=== PATIENT | male | born 1980 | race Caucasian/White ===

== ENCOUNTER 2020-09-29 23:40 | Emergency (ER) | payer BC ==
[2020-09-30] MEDS ORDERED: Bacitracin Oint 1 GM U/D Packet TOP ONE (00:41)
--- NOTE | 2020-09-30 00:54 | EDM.PDOC ---
ED HPI GENERAL MEDICAL PROBLEM - General Chief Complaint: Laceration Stated Complaint: RIGHT LEG CUT Time Seen by Provider: 09/30/20 00:30 Source of Information: Reports: Patient History Limitations: Reports: No Limitations - History of Present Illness INITIAL COMMENTS - FREE TEXT/NARRATIVE: Patient states he was cleaning up from fishing this evening, lifted his tackle bag and there apparently was a filet knife sticking out the side as it cut him along the right lateral side of his lower leg. He is unsure when his last tetnus shot was. PMH/Meds--asthma/singulair NKDA Onset: Today right lower leg Pain Score (Numeric/FACES): 0 - Related Data Allergies Allergy/AdvReac Type Severity Reaction Status Date / Time No Known Allergies Allergy Verified 09/30/20 00:15 Home Meds: Home Meds Montelukast Sodium [Singulair] 10 mg PO DAILY 09/30/20 [History] Past Medical History HEENT History: Reports: Impaired Vision Genitourinary History: Reports: None Musculoskeletal History: Reports: Fracture - Infectious Disease History Infectious Disease History: Reports: Chicken Pox - Past Surgical History GI Surgical History: Reports: Hernia Repair/Other Male Surgical History: Reports: Vasectomy Social & Family History - Tobacco Use Tobacco Use Status *Q: Never Tobacco User - Caffeine Use Caffeine Use: Reports: Coffee - Recreational Drug Use Recreational Drug Use: No ED ROS GENERAL - Review of Systems Review Of Systems: Comprehensive ROS is negative, except as noted in HPI. Skin: Reports: Wound (right lateral lower leg) ED EXAM, SKIN/RASH Exam: See Below Exam Limited By: No Limitations General Appearance: Alert, WD/WN, No Apparent Distress Eye Exam: Bilateral Eye: Normal Inspection Ears: Normal External Exam, Hearing Grossly Normal Throat/Mouth: Normal Voice, No Airway Compromise Head: Atraumatic, Normocephalic Neck: Normal Inspection, Supple, Full Range of Motion Respiratory/Chest: No Respiratory Distress, Lungs Clear, Normal Breath Sounds Cardiovascular: Regular Rate, Rhythm, No Edema, No Murmur GI/Abdominal: Soft (Male) Exam: Deferred Rectal (Males) Exam: Deferred Back Exam: Normal Inspection, Full Range of Motion Extremities: Normal Range of Motion, No Pedal Edema, Normal Capillary Refill Neurological: Alert, Oriented, Normal Cognition, No Motor/Sensory Deficits Psychiatric: Normal Affect, Normal Mood Skin: Warm, Dry, Normal Color, Other (noted 4 cm verticle laceation-superficial with minimal bleeding to lateral right lower leg) ED SKIN PROCEDURES - Laceration/Wound Repair Right Lower Lateral Leg Appearance: Subcutaneous, Clean Distal NVT: Neuro & Vascular Intact, No Tendon Injury Anesthetic Type: Local Local Anesthesia - Lidocaine (Xylocaine): 1% Plain Local Anesthetic Volume: 5cc Skin Prep: Chlorhexidine (Hibiciens), Saline Saline Irrigation (cc's): 250 Exploration/Debridement/Repair: Explored to Base, No Foreign Material Found Closed with: Sutures Lac/Wound length In cm: 4 Suture Size: 3-0 # of Sutures: 9 Suture Type: Interrupted, Other (ethilon) Drain Placement: No Sterile Dressing Applied: Provider Tetanus Status Addressed: Yes (unknown, patient offered/accepted update today; Boostrix ordered) Complications: No Course - Vital Signs Last Recorded V/S: Last Vital Signs Temp 98.0 F 09/30/20 00:30 Pulse 94 09/30/20 00:30 Resp 14 09/30/20 00:30 BP 126/82 09/30/20 00:30 Pulse Ox 97 09/30/20 00:30 - Orders/Labs/Meds Orders: Active Orders 24 hr Category Date Time Status Bacitracin [Bacitracin Oint 1 GM] Med 09/30/20 00:41 Once 1 dose TOP ONETIME ONE Lidocaine 1% [Xylocaine-MPF 1%] Med 09/30/20 00:40 Once 5 ml INJECT ONETIME ONE Medication Orders Lidocaine HCl (Lidocaine 1% 5 Ml Sdv) 5 ml INJECT ONETIME ONE Stop: 09/30/20 00:41 Meds: Medications Generic Name Dose Route Start Last Admin Trade Name Freq PRN Reason Stop Dose Admin Lidocaine HCl 5 ml 09/30/20 00:40 Lidocaine 1% 5 Ml Sdv INJECT 09/30/20 00:41 ONETIME ONE Departure - Departure Time of Disposition: 01:14 Disposition: Home, Self-Care 01 Condition: Good Clinical Impression: Laceration of lower leg, right, Accident involving knife - Discharge Information *PRESCRIPTION DRUG MONITORING PROGRAM REVIEWED*: Not Applicable *COPY OF PRESCRIPTION DRUG MONITORING REPORT IN PATIENT EVELIA: Not Applicable Instructions: Laceration Care, Adult, [id number] Referrals: PCP,None [Primary Care Provider] - Additional Instructions: Keep wound clean and dry, cover after shower with antibiotic ointment and bandage No lakes, ponds, creeks, reddy, pools or dirty water otherwise--may shower daily (remove dressing for shower) Sutures should be removed in 7-10 days Your tetnus immunization has been updated today--you will be due for next update in 2030 (or if any open wound injury after 2025) Sepsis Event Note (ED) - Evaluation Sepsis Screening Result: No Definite Risk - Focused Exam Vital Signs: Vital Signs Temp Pulse Resp BP Pulse Ox 09/30/20 00:30 98.0 F 94 14 126/82 97 09/30/20 00:28 98.0 F 94 14 126/82 97 - My Orders Last 24 Hours: My Active Orders 09/30/20 00:40 Lidocaine 1% [Xylocaine-MPF 1%] 5 ml INJECT ONETIME ONE 09/30/20 00:41 Bacitracin [Bacitracin Oint 1 GM] 1 dose TOP ONETIME ONE - Assessment/Plan Last 24 Hours: My Active Orders 09/30/20 00:40 Lidocaine 1% [Xylocaine-MPF 1%] 5 ml INJECT ONETIME ONE 09/30/20 00:41 Bacitracin [Bacitracin Oint 1 GM] 1 dose TOP ONETIME ONE
[2020-09-30] MEDS ORDERED: Diphtheria,Pertussis(Acell),Tetanus Vaccine 0.5 ML Syringe IM ONE (01:10)
== END 2020-09-30 01:25 | disposition home or self-care (01) ==
LOC: JP.ED 23:40
DX: S81.811A Laceration without foreign body, right lower leg, initial encounter (principal); Z23 Encounter for immunization; W26.0XXA Contact with knife, initial encounter; Y93.G9 Activity, other involving cooking and grilling
CPT/HCPCS: 12002; 90471; 90715; 99282-25